=== PATIENT | female | born 1970 | race Asian ===

== ENCOUNTER → 2017-06-26 | Outpatient (CLI) | payer BC ==
--- NOTE | 2017-06-27 13:55 | MAMMOGRAPHY REPORT ---
BILATERAL DIGITAL SCREENING MAMMOGRAM TOMOSYNTHESIS WITH CAD: 06/26/2017 CLINICAL HISTORY: Routine screening. Baseline exam. TECHNIQUE: Breast tomosynthesis in addition to standard 2D mammography was performed. Current study was also evaluated with a Computer Aided Detection (CAD) system. COMPARISON: No prior exams were available for comparison. BREAST COMPOSITION: The tissue of both breasts is extremely dense, which lowers the sensitivity of m ammography. FINDINGS: There are a few benign-appearing punctate microcalcifications in the breasts. No suspiciou s mass, architectural distortion or cluster of suspicious microcalcifications is seen. IMPRESSION: ACR BI-RADS CATEGORY 1: NEGATIVE There is no mammographic evidence of malignancy. A 1 year screening mammogram is recommended. The pa tient will receive written notification of the results. Approximately 10% of breast cancers are not detected with mammography. A negative mammographic report should not delay biopsy if a clinically suggestive mass is present. Yaneli Tolentino M.D. ay/:06/26/2017 15:54:12 Community Service Specialist: Opal CURRAN(David)(M), [facility] letter sent: Normal 1/2 BI-RADS Code: ACR BI-RADS Category 1: Negative
== END | disposition home or self-care (01) ==
LOC: C.MAMM 14:54
PROVIDERS: ATTEND Family Medicine
DX: Z12.31 Encounter for screening mammogram for malignant neoplasm of breast (principal)

== ENCOUNTER → 2017-12-09 | Outpatient (CLI) | payer BC ==
--- NOTE | 2017-12-09 14:11 | DIAGNOSTIC IMAGING REPORT ---
TRANSVAG-FEMALE PELVIS HISTORY: Pain LT LOWER QUAD PAIN DR LR'S !! COMPARISON: None. FINDINGS: Uterus: 8.2 cm maximum dimension Endometrial stripe: 3 mm Right ovary: Not identified due to overlying bowel content Left ovary: Not identified due to overlying bowel content Miscellaneous:No pelvic free fluid. IMPRESSION: 1. Normal uterus. 2. Nonvisualization of the ovaries due to overlying bowel content. 3. No free fluid is identified. The above report was generated using voice recognition software. It may contain grammatical, syntax or spelling errors. Electronically signed by: Frank Posada M.D. 12/09/2017 2:10 PM Dictated Date/Time: 12/09/2017 2:08 PM
== END | disposition home or self-care (01) ==
LOC: C.ULTR 13:21
PROVIDERS: ATTEND Family Medicine
DX: R10.32 Left lower quadrant pain (principal)